=== PATIENT | male | born 1965 | race Caucasian/White ===

== ENCOUNTER 2017-08-08 16:00 | Emergency (ER) | payer OTHER ==
[2017-08-08 16:51] LABS: #Basophils 0.1 thou/uL (0.0-0.2); #Eosinphils 0.2 thou/uL (0.0-0.7); #Monocytes 0.7 thou/uL (0.11-0.59); #Neutrophils 5.2 thou/uL (1.40-6.50); %Basophils 1.5 % (0.0-1.0); %Eosinophils 2.5 % (0.0-10.0); %Monocytes 8.5 % (0.0-10.0); %Neutrophils 63.6 % (42.0-75.0); Hemoglobin 15.7 g/dL (14.0-18.0); Mean Corpuscular HGB CONC 35.1 g/dL (32.0-36.0); Mean Corpuscular Hemoglobin 29.4 pg (27.0-31.0); Mean Corpuscular Volume 83.9 fl (80.0-94.0); Mean Platelet Volume 6.9 fL (7.4-10.4); Platelet Count 160 thou/uL (130-400); RBC Distribution Width 11.5 % (11.5-14.5); Red Blood Cell (RBC) Count 5.35 mill/uL (4.70-6.10); White Blood Cell (WBC) Count 8.1 thou/uL (4.8-10.8)
[2017-08-08 17:01] LABS: Anion Gap 14 mmol/L (10-20); BUN (Urea Nitrogen) 18 mg/dL (8.9-20.6); Calc. Creatinine Clearance 0 mL/min (70-130); Calcium 9.7 mg/dL (7.8-10.44); Carbon Dioxide 23 mmol/L (22-29); Chloride 106 mmol/L (98-107); Estimated GFR-MDRD 44; Glucose 99 mg/dL (70-105); Potassium 3.8 mmol/L (3.5-5.1); Sodium 139 mmol/L (136-145)
--- NOTE | 2017-08-08 17:02 | RAD ---
CHEST ONE VIEW: HISTORY: Fever. COMPARISON: 11/07/2009 FINDINGS: A portable semi-upright chest demonstrates a normal cardiac silhouette. The pulmonary vessels and hi lum are normal. The costophrenic angles are clear. No masses or consolidation. No pneumothorax or osseous abnormalities. IMPRESSION: No acute cardiopulmonary process. POS: [facility]
[2017-08-08] MEDS ORDERED: predniSONE 20 MG TAB ONE (17:41)
[2017-08-08] MEDS ORDERED: Acetaminophen 500 MG TAB ONE (17:59)
--- NOTE | 2017-08-08 18:02 | CT ---
CT PULMONARY ANGIOGRAM WITH IV CONTRAST AND 3D MIP RECONSTRUCTIONS: 08/08/2017 PROVIDED CLINICAL HISTORY: Difficulty breathing. FINDINGS: There is preferential contrast material within the systemic arterial circulation, limiting evaluation for pulmonary embolus. there is no evidence for central pulmonary embolus. Evaluation of the more distal pulmonary arterial system is not possible on the basis of this study. The heart, pericardium, and great vessels appear otherwise unremarkable. Multiple pnyglzucc-[id number]-fpermv lymph nodes are seen within the mediastinum and both hilar regions. Joaquin e of these are enlarged, with the largest being a subcarinal lymph node that measures about 1.5 cm in short axis. No evidence for axillary lymph node enlargement. There is clustered nodularity present within both lower lobes, compatible with infectious pneumonitis . No pleural fluid or pneumothorax apparent. The visualized portions of the upper abdomen appear unremarkable. The osseous structures demonstrate no concerning lytic or blastic lesions. IMPRESSION: 1. Limited study for evaluation of pulmonary embolus, as above. 2. Clustered nodularity involving both lower lobes, compatible with infectious pneumonitis. 3. Mediastinal and hilar lymph node enlargement, which may be reactive. Consider followup. POS: [facility]
== END 2017-08-08 18:32 | disposition home or self-care (01) ==
LOC: SCSER 16:00
DX: J18.9 Pneumonia, unspecified organism (principal); J45.909 Unspecified asthma, uncomplicated
CPT/HCPCS: 71045; 71275; 80048; 85025; 85379; 93005; 94640; 96360; J7506; J7620

== ENCOUNTER 2019-02-07 14:01 | Emergency (ER) | payer OTHER | END 2019-02-07 14:50 | disposition home or self-care (01) | LOC: SCSER 14:01 | DX: T16.1XXA Foreign body in right ear, initial encounter (principal); J45.909 Unspecified asthma, uncomplicated | CPT/HCPCS: 99282 ==